=== PATIENT | female | born 1970 | race Asian ===

== ENCOUNTER 2023-06-09 17:39 | Emergency (ER) | payer OTHER ==
[2023-06-09 17:52] VITALS: BP 107/81; PULSE 65; RESP 20; TEMP 98.2; BMI 23.0
== END 2023-06-09 19:03 | disposition home or self-care (01) ==
LOC: FER 17:39
PROC: 2W3SX1Z Immobilization of Right Foot using Splint (ICD-10-PCS; principal; 2023-06-09)
DX: S92.351A Displaced fracture of fifth metatarsal bone, right foot, initial encounter for closed fracture (principal); W10.8XXA Fall (on) (from) other stairs and steps, initial encounter
CPT/HCPCS: 73630-TC-RT-FY; 99284-25

== ENCOUNTER 2024-03-08 14:46 | Emergency (ER) | payer OTHER ==
[2024-03-08 14:57] VITALS: BP 114/62; PULSE 62; RESP 20; TEMP 98.2; BMI 23.0
[2024-03-08] MEDS ORDERED: KETOROLAC TROMETHAMINE 15 MG/ML VIAL ONE (16:07)
[2024-03-08] MEDS ORDERED: LIDOCAINE 5% TOPICAL PATCH ONE (16:07)
[2024-03-08] MEDS ORDERED: METHOCARBAMOL 500 MG TABLET ONE (16:07)
[2024-03-08] MEDS: KETOROLAC TROMETHAMINE 15 MG/ML VIAL IM ONE (16:08)
[2024-03-08] MEDS: METHOCARBAMOL 500 MG TABLET PO ONE (16:08)
[2024-03-08] MEDS: LIDOCAINE 5% TOPICAL PATCH TP ONE (16:08)
[2024-03-08] MEDS ORDERED: IBUPROFEN 600 MG TABLET (FP) PO ONE (16:21)
[2024-03-08] MEDS: IBUPROFEN 600 MG TABLET (FP) PO ONE (16:22)
[2024-03-08] MEDS ORDERED: LIDOCAINE PATCH REMOVAL MC ONE (22:00)
== END 2024-03-08 16:38 | disposition home or self-care (01) ==
LOC: FER 14:46
PROC: 3E0233Z Introduction of Anti-inflammatory into Muscle, Percutaneous Approach (ICD-10-PCS; principal; 2024-03-08)
DX: M54.50 Low back pain, unspecified (principal)
CPT/HCPCS: 72100-TC-FY; 99284-25